=== PATIENT | female | born 1990 | race African-American/Black ===

== ENCOUNTER 2021-11-29 07:30 | Outpatient (RCR) | payer OTHER, SELFPAY ==
--- NOTE | 2021-10-20 09:09 | PT.OPPOC ---
Physical, Occupational & Speech Therapy At [facility] Current Diagnoses Pain in left lower leg (10/20/21) Visit Care Team Role Provider Type Brant [place] Attending Provider Non-Staff Family Provider Primary Care Provider Referring Provider Specialty: Medical Address: [facility], [address] [place] [address], [id number] Email: Plan Of Care PT-OP-T Assessment and Plan Start: 10/17/21 09:24 Freq: Status: Active Protocol: Document 10/20/21 08:15 AMB (Rec: 10/21/21 09:08 AMB [id number]) Physical Therapy Assessment Rehab Potential Rehabilitation Potential Good Evaluation Complexity Number of Personal Factors/Comorbidities 1-2 Number of Body Systems Impaired 4 or More Clinical Presentation at Evaluation Stable Impairments Impairments Activity Tolerance,Functional Activities,Gait,Pain,Strength Goals Two Impairment Pain Short Term Goal (STG) Meli will hike over uneven terrain for 1 mile without knee pain. STG Duration 4 weeks Alf Goal (LTG) Meli will run for 1/2 mile without knee pain. LTG Duration 8 weeks One Impairment Hip strength Short Term Goal (STG) Meli will improve her hip strength in all planes to at least 4+/5. STG Duration 4 weeks Alf Goal (LTG) Meli will perform a single leg squat without medial collapse and without knee pain. LTG Duration 8 weeks Assessment Summary Assessment Meli attends physical therapy with medial knee pain with running s/p L femoral fracture years ago. She attends with left hip abductor and extensor weakness that leads to medial collapse when walking quickly and especially with running/single leg stance activities. She will benefit from physical therapy for hip strengthening and education on running form to reduce her knee pain. Physical Therapy Plan Frequency and Duration Frequency of Treatment 2x/Week Duration of Treatment 8 weeks Plan of Care Start Date 10/20/21 Plan of Care End Date 12/15/21 Therapeutic Interventions Therapeutic Interventions Gait Training,Home Exercise Program,Manual Therapy, Neuromuscular Re-education, Self-Care/Home Management, Therapeutic Activities, Therapeutic Exercises Modalities Cold Pack/Ice Massage,Electric Stimulation,Hot Packs Next Visit Focus/Plan Next Note Type Treatment Note Next Visit Plan Follow up on hip abduction strength Plan of Care Dates Plan of Care Start Date 10/20/21 Plan of Care End Date 12/15/21 Electronically Signed by: Tonia Hannah, VALENTE 10/21/21 0909 Please Sign and Return: I have reviewed this Plan of Care and certify that the skilled therapy services above are required to meet the patient?s needs. Physician Signature Date Printed Name and Credentials Clinical Instructor Signature Printed Name and Credentials
--- NOTE | 2021-10-20 09:09 | PT.OIE ---
Current Diagnoses Pain in left lower leg (10/20/21) Visit Care Team Role Provider Type Brant [place] Attending Provider Non-Staff Family Provider Primary Care Provider Referring Provider Specialty: Medical Address: [facility], [address] [place] [address], [id number] Email: Physical Therapy Initial Evaluation PT-OP-A Visit Information Start: 10/17/21 09:24 Freq: Status: Active Protocol: Document 10/20/21 08:11 AMB (Rec: 10/20/21 08:13 AMB [id number]) Out-Patient Physical Therapy Visit Information Visit Information Visit Type Initial Evaluation Visit Start Time 08:15 Visit Stop Time 09:00 Total Visit Minutes 45 Visit Number 1 PT-OP-B Current Condition Start: 10/17/21 09:24 Freq: Status: Active Protocol: Document 10/20/21 08:13 AMB (Rec: 10/20/21 08:24 AMB [id number]) Current Condition History of Current Condition Onset Date July 2018 Current Complaints Bilateral knee pain, L lateral hip pain after distant L femoral fracture History of Current Condition Meli reports L>R medial knee pain with running, hiking, could hurt with walking. Did run a half marathon in July and thinks that went ok, but before and after noted pain at knees and posteriorlateral hip worst with running. Currently going on runs on treadmill for 2 miles but does feel it. Squats might hurt if she does them after she goes for a run. Intermedullary nailing with mohsen and screws both proximal and distal after skii accident in 2017. 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 PT-OP-C Subjective Start: 10/17/21 09:24 Freq: Status: Active Protocol: Document 10/20/21 08:15 AMB (Rec: 10/20/21 11:10 AMB [id number]) Patient Questionnaires Lower Extremity Functional Scale LEFS Score 69 LEFS Impairment 1 to 19% Impaired (Score 63-79 ) OP-PT Pain Assessment Comments Pain Comments 2-4/10 pain at bilateral knees and left posteriorlateral hip PT-OP-G Mobility & Gait Start: 10/17/21 09:24 Freq: Status: Active Protocol: Document 10/20/21 08:15 AMB (Rec: 10/20/21 11:10 AMB [id number]) OP Gait Assessment Comments Gait Comments Mild Trendelenburg on the left , worse as speed increases with visible medial collapse at the knee as velocity increases PT-OP-J Posture/Palpation/Skin Start: 10/17/21 09:24 Freq: Status: Active Protocol: Document 10/20/21 08:15 AMB (Rec: 10/20/21 11:13 AMB [id number]) Palpation Assessment Location One Palpation Location L knee Palpation Details Meli feels like she can feels the distal screws near her knee, no pain with deep palpation over the area. Mild tension over IT band. PT-OP-K Range of Motion Start: 10/17/21 09:24 Freq: Status: Active Protocol: Document 10/20/21 08:15 AMB (Rec: 10/20/21 11:10 AMB [id number]) Hip Goniometric Range of Motion Hip Right Passive Testing Position Supine Flexion w/Knee Flexed 130 Internal Rotation 27 External Rotation 50 Left Passive Testing Position Supine Flexion w/Knee Flexed 122 Internal Rotation 35 External Rotation 50 PT-OP-L Special Tests Start: 10/17/21 09:24 Freq: Status: Active Protocol: Document 10/20/21 08:15 AMB (Rec: 10/20/21 11:10 AMB [id number]) Special Tests Knee Special Tests Varus- 25 Degrees Test Results - Valgus- 25 Degrees Test Results - Patellar Grind Test Test Results - Anterior Draw Test Results - PT-OP-M Strength Start: 10/17/21 09:24 Freq: Status: Active Protocol: Document 10/20/21 08:15 AMB (Rec: 10/20/21 11:10 AMB [id number]) Hip Strength Hip Manual Muscle Testing Right Flexion (L2) 4+ Good+ Extension (S1) 5 Normal Abduction 5 Normal Adduction 4+ Good+ Left Flexion (L2) 4+ Good+ Extension (S1) 4- Good- Abduction 4- Good- Adduction 4 Good Knee Strength Knee Manual Muscle Testing Right Flexion (S2) 5 Normal Extension (L3) 5 Normal Left Flexion (S2) 5 Normal Extension (L3) 5 Normal Ankle/Foot Strength Ankle and Foot Manual Muscle Testing Right Dorsiflexion (L4) 5 Normal Plantarflexion (S1) 5 Normal Left Dorsiflexion (L4) 5 Normal Plantarflexion (S1) 5 Normal PT-OP-Q Treatments Start: 10/17/21 09:24 Freq: Status: Active Protocol: Document 10/20/21 08:15 AMB (Rec: 10/20/21 11:16 AMB [id number]) Therapeutic Exercises Sidelying Exercises hip abd Reps/Minutes 10 Comments cues for form- getting enough hip ext Standing Exercises sidestep Standing Exercise Name in squat with t band Comments increased medial knee pain did not give as HEP Other Exercises 1 Other Exercise Name quadruped hip ext Reps/Minutes 2x10 PT-OP-T Assessment and Plan Start: 10/17/21 09:24 Freq: Status: Active Protocol: Document 10/20/21 08:15 AMB (Rec: 10/21/21 09:08 AMB [id number]) Physical Therapy Assessment Rehab Potential Rehabilitation Potential Good Evaluation Complexity Number of Personal Factors/Comorbidities 1-2 Number of Body Systems Impaired 4 or More Clinical Presentation at Evaluation Stable Impairments Impairments Activity Tolerance,Functional Activities,Gait,Pain,Strength Goals Two Impairment Pain Short Term Goal (STG) Meli will hike over uneven terrain for 1 mile without knee pain. STG Duration 4 weeks Naval Architect Specialist Goal (LTG) Meli will run for 1/2 mile without knee pain. LTG Duration 8 weeks One Impairment Hip strength Short Term Goal (STG) Meli will improve her hip strength in all planes to at least 4+/5. STG Duration 4 weeks [facility]ci Goal (LTG) Meli will perform a single leg squat without medial collapse and without knee pain. LTG Duration 8 weeks Assessment Summary Assessment Meli attends physical therapy with medial knee pain with running s/p L femoral fracture years ago. She attends with left hip abductor and extensor weakness that leads to medial collapse when walking quickly and especially with running/single leg stance activities. She will benefit from physical therapy for hip strengthening and education on running form to reduce her knee pain. Physical Therapy Plan Frequency and Duration Frequency of Treatment 2x/Week Duration of Treatment 8 weeks Plan of Care Start Date 10/20/21 Plan of Care End Date 12/15/21 Therapeutic Interventions Therapeutic Interventions Gait Training,Home Exercise Program,Manual Therapy, Neuromuscular Re-education, Self-Care/Home Management, Therapeutic Activities, Therapeutic Exercises Modalities Cold Pack/Ice Massage,Electric Stimulation,Hot Packs Next Visit Focus/Plan Next Note Type Treatment Note Next Visit Plan Follow up on hip abduction strength
--- NOTE | 2021-11-04 08:51 | PT.OTN ---
Current Diagnoses Pain in left lower leg (11/04/21) Physical Therapy Treatment Note PT-OP-A Visit Information Start: 10/17/21 09:24 Freq: Status: Active Protocol: Document 11/04/21 07:30 AMB (Rec: 11/04/21 08:50 AMB [id number]) Out-Patient Physical Therapy Visit Information Visit Information Visit Type Treatment Note Visit Start Time 07:30 Visit Stop Time 08:15 Total Visit Minutes 45 Visit Number 2 PT-OP-B Current Condition Start: 10/17/21 09:24 Freq: Status: Active Protocol: Document 10/20/21 08:13 AMB (Rec: 10/20/21 08:24 AMB [id number]) Current Condition History of Current Condition Onset Date July 2018 Current Complaints Bilateral knee pain, L lateral hip pain after distant L femoral fracture History of Current Condition Meli reports L>R medial knee pain with running, hiking, could hurt with walking. Did run a half marathon in July and thinks that went ok, but before and after noted pain at knees and posteriorlateral hip worst with running. Currently going on runs on treadmill for 2 miles but does feel it. Squats might hurt if she does them after she goes for a run. Intermedullary nailing with mohsen and screws both proximal and distal after skii accident in 2017. 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 PT-OP-C Subjective Start: 10/17/21 09:24 Freq: Status: Active Protocol: Document 11/04/21 07:30 AMB (Rec: 11/04/21 08:50 AMB [id number]) OP-PT Subjective Patient Comments Patient Comments Pt reports she had covid so, hasn't been working out over the past two weeks. did do her HEP though, that has been going fine. PT-OP-G Mobility & Gait Start: 10/17/21 09:24 Freq: Status: Active Protocol: Document 10/20/21 08:15 AMB (Rec: 10/20/21 11:10 AMB [id number]) OP Gait Assessment Comments Gait Comments Mild Trendelenburg on the left , worse as speed increases with visible medial collapse at the knee as velocity increases PT-OP-J Posture/Palpation/Skin Start: 10/17/21 09:24 Freq: Status: Active Protocol: Document 10/20/21 08:15 AMB (Rec: 10/20/21 11:13 AMB [id number]) Palpation Assessment Location One Palpation Location L knee Palpation Details Meli feels like she can feels the distal screws near her knee, no pain with deep palpation over the area. Mild tension over IT band. PT-OP-K Range of Motion Start: 10/17/21 09:24 Freq: Status: Active Protocol: Document 10/20/21 08:15 AMB (Rec: 10/20/21 11:10 AMB [id number]) Hip Goniometric Range of Motion Hip Right Passive Testing Position Supine Flexion w/Knee Flexed 130 Internal Rotation 27 External Rotation 50 Left Passive Testing Position Supine Flexion w/Knee Flexed 122 Internal Rotation 35 External Rotation 50 PT-OP-L Special Tests Start: 10/17/21 09:24 Freq: Status: Active Protocol: Document 10/20/21 08:15 AMB (Rec: 10/20/21 11:10 AMB [id number]) Special Tests Knee Special Tests Varus- 25 Degrees Test Results - Valgus- 25 Degrees Test Results - Patellar Grind Test Test Results - Anterior Draw Test Results - PT-OP-M Strength Start: 10/17/21 09:24 Freq: Status: Active Protocol: Document 10/20/21 08:15 AMB (Rec: 10/20/21 11:10 AMB [id number]) Hip Strength Hip Manual Muscle Testing Right Flexion (L2) 4+ Good+ Extension (S1) 5 Normal Abduction 5 Normal Adduction 4+ Good+ Left Flexion (L2) 4+ Good+ Extension (S1) 4- Good- Abduction 4- Good- Adduction 4 Good Knee Strength Knee Manual Muscle Testing Right Flexion (S2) 5 Normal Extension (L3) 5 Normal Left Flexion (S2) 5 Normal Extension (L3) 5 Normal Ankle/Foot Strength Ankle and Foot Manual Muscle Testing Right Dorsiflexion (L4) 5 Normal Plantarflexion (S1) 5 Normal Left Dorsiflexion (L4) 5 Normal Plantarflexion (S1) 5 Normal PT-OP-Q Treatments Start: 10/17/21 09:24 Freq: Status: Active Protocol: Document 11/04/21 07:30 AMB (Rec: 11/04/21 08:50 AMB [id number]) Cardio Equipment Treadmill Duration (Minutes) 5 Speed 2 Gym Equipment Shuttle Recovery Unilateral Squats Resistance 50 Bilateral Squats Details with yellow t band around thighs Resistance 50 Reps/Time 2x10 Therapeutic Exercises Sidelying Exercises clamshell Resistance #1 t band Reps/Minutes 2x10 hip abd Reps/Minutes 10 Comments cues for form- getting enough hip ext Standing Exercises 1 Standing Exercise Name squat Comments mirror feedback, cued neutral lumbar spine, even weightbearing Other Exercises 2 Other Exercise Name quadruped hip external rotation Reps/Minutes 2x10 1 Other Exercise Name quadruped hip ext Reps/Minutes 2x10 Manual Therapy Treatment Other Other Manual Treatments instruction in self rolling foam roller vs rolling pin PT-OP-T Assessment and Plan Start: 10/17/21 09:24 Freq: Status: Active Protocol: Document 11/04/21 07:30 AMB (Rec: 11/04/21 08:50 AMB [id number]) Physical Therapy Assessment Assessment Summary Assessment Meli did well with exercises, did well thinking more about engaging glutes with walking. Does tend to more over laterally away from fractured leg with squats, especially as she moves deeper . Is having some awareness of medial screw with deeper squats. Physical Therapy Plan Next Visit Focus/Plan Next Note Type Treatment Note Next Visit Plan current HEP: clamshell with t band, quadruped hip extension and ER, hip abduction
--- NOTE | 2021-11-07 08:42 | PT.OTN ---
Current Diagnoses Pain in left lower leg (11/07/21) Physical Therapy Treatment Note PT-OP-A Visit Information Start: 10/17/21 09:24 Freq: Status: Active Protocol: Document 11/07/21 07:30 AMB (Rec: 11/07/21 08:42 AMB [id number]) Out-Patient Physical Therapy Visit Information Visit Information Visit Type Treatment Note Visit Start Time 07:30 Visit Stop Time 08:15 Total Visit Minutes 45 Visit Number 3 PT-OP-B Current Condition Start: 10/17/21 09:24 Freq: Status: Active Protocol: Document 10/20/21 08:13 AMB (Rec: 10/20/21 08:24 AMB [id number]) Current Condition History of Current Condition Onset Date July 2018 Current Complaints Bilateral knee pain, L lateral hip pain after distant L femoral fracture History of Current Condition Meli reports L>R medial knee pain with running, hiking, could hurt with walking. Did run a half marathon in July and thinks that went ok, but before and after noted pain at knees and posteriorlateral hip worst with running. Currently going on runs on treadmill for 2 miles but does feel it. Squats might hurt if she does them after she goes for a run. Intermedullary nailing with mohsen and screws both proximal and distal after skii accident in 2017. 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 PT-OP-C Subjective Start: 10/17/21 09:24 Freq: Status: Active Protocol: Document 11/07/21 07:30 AMB (Rec: 11/07/21 08:42 AMB [id number]) OP-PT Subjective Patient Comments Patient Comments Pt went on a walk over the weekend and worked on being aware of her glute activation. Did notice discomfort after about a mile. PT-OP-G Mobility & Gait Start: 10/17/21 09:24 Freq: Status: Active Protocol: Document 10/20/21 08:15 AMB (Rec: 10/20/21 11:10 AMB [id number]) OP Gait Assessment Comments Gait Comments Mild Trendelenburg on the left , worse as speed increases with visible medial collapse at the knee as velocity increases PT-OP-J Posture/Palpation/Skin Start: 10/17/21 09:24 Freq: Status: Active Protocol: Document 10/20/21 08:15 AMB (Rec: 10/20/21 11:13 AMB [id number]) Palpation Assessment Location One Palpation Location L knee Palpation Details Meli feels like she can feels the distal screws near her knee, no pain with deep palpation over the area. Mild tension over IT band. PT-OP-K Range of Motion Start: 10/17/21 09:24 Freq: Status: Active Protocol: Document 10/20/21 08:15 AMB (Rec: 10/20/21 11:10 AMB [id number]) Hip Goniometric Range of Motion Hip Right Passive Testing Position Supine Flexion w/Knee Flexed 130 Internal Rotation 27 External Rotation 50 Left Passive Testing Position Supine Flexion w/Knee Flexed 122 Internal Rotation 35 External Rotation 50 PT-OP-L Special Tests Start: 10/17/21 09:24 Freq: Status: Active Protocol: Document 10/20/21 08:15 AMB (Rec: 10/20/21 11:10 AMB [id number]) Special Tests Knee Special Tests Varus- 25 Degrees Test Results - Valgus- 25 Degrees Test Results - Patellar Grind Test Test Results - Anterior Draw Test Results - PT-OP-M Strength Start: 10/17/21 09:24 Freq: Status: Active Protocol: Document 10/20/21 08:15 AMB (Rec: 10/20/21 11:10 AMB [id number]) Hip Strength Hip Manual Muscle Testing Right Flexion (L2) 4+ Good+ Extension (S1) 5 Normal Abduction 5 Normal Adduction 4+ Good+ Left Flexion (L2) 4+ Good+ Extension (S1) 4- Good- Abduction 4- Good- Adduction 4 Good Knee Strength Knee Manual Muscle Testing Right Flexion (S2) 5 Normal Extension (L3) 5 Normal Left Flexion (S2) 5 Normal Extension (L3) 5 Normal Ankle/Foot Strength Ankle and Foot Manual Muscle Testing Right Dorsiflexion (L4) 5 Normal Plantarflexion (S1) 5 Normal Left Dorsiflexion (L4) 5 Normal Plantarflexion (S1) 5 Normal PT-OP-Q Treatments Start: 10/17/21 09:24 Freq: Status: Active Protocol: Document 11/07/21 07:30 AMB (Rec: 11/07/21 08:42 AMB [id number]) Cardio Equipment Treadmill Duration (Minutes) 5 Speed 2.5 Gym Equipment Shuttle Balance RED Comments m/l WBOS squats Therapeutic Exercises Supine Exercises piriformis stretch Reps/Minutes 30x2 hamstring stretch Reps/Minutes 30x2 Sidelying Exercises hip abd Reps/Minutes 2x 10 Comments cues for form- getting enough hip ext Standing Exercises wall squats Reps/Minutes 15 hold x4 1 Standing Exercise Name squat Comments mirror feedback, cued neutral lumbar spine, even weightbearing Manual Therapy Treatment Other Other Manual Treatments instruction in self rolling foam roller vs rolling pin-- educated to stay off greater trochanter/bony prominences PT-OP-T Assessment and Plan Start: 10/17/21 09:24 Freq: Status: Active Protocol: Document 11/07/21 07:30 AMB (Rec: 11/07/21 08:42 AMB [id number]) Physical Therapy Assessment Assessment Summary Assessment Better with longer hold squats instead of lots of reps. did do well with rolling out, fairly flexible so doesn't feel a lot of stretch. Physical Therapy Plan Next Visit Focus/Plan Next Note Type Treatment Note Next Visit Plan Review long hold squats given as HEP today.
--- NOTE | 2021-11-09 12:55 | PT.OTN ---
Current Diagnoses Pain in left lower leg (11/09/21) Physical Therapy Treatment Note PT-OP-A Visit Information Start: 10/17/21 09:24 Freq: Status: Active Protocol: Document 11/09/21 07:30 AMB (Rec: 11/09/21 08:24 AMB [id number]) Out-Patient Physical Therapy Visit Information Visit Information Visit Type Treatment Note Visit Start Time 07:30 Visit Stop Time 08:15 Total Visit Minutes 45 Visit Number 4 PT-OP-B Current Condition Start: 10/17/21 09:24 Freq: Status: Active Protocol: Document 10/20/21 08:13 AMB (Rec: 10/20/21 08:24 AMB [id number]) Current Condition History of Current Condition Onset Date July 2018 Current Complaints Bilateral knee pain, L lateral hip pain after distant L femoral fracture History of Current Condition Meli reports L>R medial knee pain with running, hiking, could hurt with walking. Did run a half marathon in July and thinks that went ok, but before and after noted pain at knees and posteriorlateral hip worst with running. Currently going on runs on treadmill for 2 miles but does feel it. Squats might hurt if she does them after she goes for a run. Intermedullary nailing with mohsen and screws both proximal and distal after skii accident in 2017. 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 PT-OP-C Subjective Start: 10/17/21 09:24 Freq: Status: Active Protocol: Document 11/09/21 07:30 AMB (Rec: 11/10/21 09:46 AMB [id number]) OP-PT Subjective Patient Comments Patient Comments Overall feeling about the same , continues to feel medial knee discomfort with squats, has not returned to running yet. PT-OP-G Mobility & Gait Start: 10/17/21 09:24 Freq: Status: Active Protocol: Document 10/20/21 08:15 AMB (Rec: 10/20/21 11:10 AMB [id number]) OP Gait Assessment Comments Gait Comments Mild Trendelenburg on the left , worse as speed increases with visible medial collapse at the knee as velocity increases PT-OP-J Posture/Palpation/Skin Start: 10/17/21 09:24 Freq: Status: Active Protocol: Document 10/20/21 08:15 AMB (Rec: 10/20/21 11:13 AMB [id number]) Palpation Assessment Location One Palpation Location L knee Palpation Details Meli feels like she can feels the distal screws near her knee, no pain with deep palpation over the area. Mild tension over IT band. PT-OP-K Range of Motion Start: 10/17/21 09:24 Freq: Status: Active Protocol: Document 10/20/21 08:15 AMB (Rec: 10/20/21 11:10 AMB [id number]) Hip Goniometric Range of Motion Hip Right Passive Testing Position Supine Flexion w/Knee Flexed 130 Internal Rotation 27 External Rotation 50 Left Passive Testing Position Supine Flexion w/Knee Flexed 122 Internal Rotation 35 External Rotation 50 PT-OP-L Special Tests Start: 10/17/21 09:24 Freq: Status: Active Protocol: Document 10/20/21 08:15 AMB (Rec: 10/20/21 11:10 AMB [id number]) Special Tests Knee Special Tests Varus- 25 Degrees Test Results - Valgus- 25 Degrees Test Results - Patellar Grind Test Test Results - Anterior Draw Test Results - PT-OP-M Strength Start: 10/17/21 09:24 Freq: Status: Active Protocol: Document 10/20/21 08:15 AMB (Rec: 10/20/21 11:10 AMB [id number]) Hip Strength Hip Manual Muscle Testing Right Flexion (L2) 4+ Good+ Extension (S1) 5 Normal Abduction 5 Normal Adduction 4+ Good+ Left Flexion (L2) 4+ Good+ Extension (S1) 4- Good- Abduction 4- Good- Adduction 4 Good Knee Strength Knee Manual Muscle Testing Right Flexion (S2) 5 Normal Extension (L3) 5 Normal Left Flexion (S2) 5 Normal Extension (L3) 5 Normal Ankle/Foot Strength Ankle and Foot Manual Muscle Testing Right Dorsiflexion (L4) 5 Normal Plantarflexion (S1) 5 Normal Left Dorsiflexion (L4) 5 Normal Plantarflexion (S1) 5 Normal PT-OP-Q Treatments Start: 10/17/21 09:24 Freq: Status: Active Protocol: Document 11/09/21 07:30 AMB (Rec: 11/10/21 09:46 AMB [id number]) Cardio Equipment Treadmill Duration (Minutes) 5 Speed 3 Therapeutic Exercises Sidelying Exercises hip abd Reps/Minutes 2x 10 Comments cues for form- getting enough hip ext Standing Exercises 2 Standing Exercise Name heel raises on stair Reps/Minutes 10 sidestep Standing Exercise Name no squat/t band, focus on toes forward Manual Therapy Treatment Soft Tissue Mobilization 1 Body Location quads, IT band Mobilization Type Myofascial Release,Rolling Intensity/Depth Moderate Comments rolling PT-OP-T Assessment and Plan Start: 10/17/21 09:24 Freq: Status: Active Protocol: Document 11/09/21 07:30 AMB (Rec: 11/10/21 09:46 AMB [id number]) Physical Therapy Assessment Goals Two Impairment Pain Short Term Goal (STG) Meli will hike over uneven terrain for 1 mile without knee pain. STG Duration 4 weeks Leak Hunter Goal (LTG) Meli will run for 1/2 mile without knee pain. LTG Duration 8 weeks One Impairment Hip strength Short Term Goal (STG) Meli will improve her hip strength in all planes to at least 4+/5. STG Duration 4 weeks Residential Goal (LTG) Meli will perform a single leg squat without medial collapse and without knee pain. LTG Duration 8 weeks Assessment Summary Assessment Worked more on squat form today. Does show atrophy on L calf, so added in heel raises for better push off with running. Physical Therapy Plan Next Visit Focus/Plan Next Note Type Treatment Note Next Visit Plan Review long hold squats, rolling,
--- NOTE | 2021-11-15 08:44 | PT.OTN ---
Current Diagnoses Pain in left lower leg (11/15/21) Physical Therapy Treatment Note PT-OP-A Visit Information Start: 10/17/21 09:24 Freq: Status: Active Protocol: Document 11/15/21 07:32 AMB (Rec: 11/15/21 08:44 AMB [id number]) Out-Patient Physical Therapy Visit Information Visit Information Visit Type Treatment Note Visit Start Time 07:30 Visit Stop Time 08:15 Total Visit Minutes 45 Visit Number 5 PT-OP-B Current Condition Start: 10/17/21 09:24 Freq: Status: Active Protocol: Document 10/20/21 08:13 AMB (Rec: 10/20/21 08:24 AMB [id number]) Current Condition History of Current Condition Onset Date July 2018 Current Complaints Bilateral knee pain, L lateral hip pain after distant L femoral fracture History of Current Condition Meli reports L>R medial knee pain with running, hiking, could hurt with walking. Did run a half marathon in July and thinks that went ok, but before and after noted pain at knees and posteriorlateral hip worst with running. Currently going on runs on treadmill for 2 miles but does feel it. Squats might hurt if she does them after she goes for a run. Intermedullary nailing with mohsen and screws both proximal and distal after skii accident in 2017. 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 PT-OP-C Subjective Start: 10/17/21 09:24 Freq: Status: Active Protocol: Document 11/15/21 07:32 AMB (Rec: 11/15/21 08:44 AMB [id number]) OP-PT Subjective Patient Comments Patient Comments Worked out this weekend, feels fatigue in with single leg weights, went on a walk and can feel it inthe lower leg with that, but not bad. PT-OP-G Mobility & Gait Start: 10/17/21 09:24 Freq: Status: Active Protocol: Document 10/20/21 08:15 AMB (Rec: 10/20/21 11:10 AMB [id number]) OP Gait Assessment Comments Gait Comments Mild Trendelenburg on the left , worse as speed increases with visible medial collapse at the knee as velocity increases PT-OP-J Posture/Palpation/Skin Start: 10/17/21 09:24 Freq: Status: Active Protocol: Document 10/20/21 08:15 AMB (Rec: 10/20/21 11:13 AMB [id number]) Palpation Assessment Location One Palpation Location L knee Palpation Details Meli feels like she can feels the distal screws near her knee, no pain with deep palpation over the area. Mild tension over IT band. PT-OP-K Range of Motion Start: 10/17/21 09:24 Freq: Status: Active Protocol: Document 10/20/21 08:15 AMB (Rec: 10/20/21 11:10 AMB [id number]) Hip Goniometric Range of Motion Hip Right Passive Testing Position Supine Flexion w/Knee Flexed 130 Internal Rotation 27 External Rotation 50 Left Passive Testing Position Supine Flexion w/Knee Flexed 122 Internal Rotation 35 External Rotation 50 PT-OP-L Special Tests Start: 10/17/21 09:24 Freq: Status: Active Protocol: Document 10/20/21 08:15 AMB (Rec: 10/20/21 11:10 AMB [id number]) Special Tests Knee Special Tests Varus- 25 Degrees Test Results - Valgus- 25 Degrees Test Results - Patellar Grind Test Test Results - Anterior Draw Test Results - PT-OP-M Strength Start: 10/17/21 09:24 Freq: Status: Active Protocol: Document 10/20/21 08:15 AMB (Rec: 10/20/21 11:10 AMB [id number]) Hip Strength Hip Manual Muscle Testing Right Flexion (L2) 4+ Good+ Extension (S1) 5 Normal Abduction 5 Normal Adduction 4+ Good+ Left Flexion (L2) 4+ Good+ Extension (S1) 4- Good- Abduction 4- Good- Adduction 4 Good Knee Strength Knee Manual Muscle Testing Right Flexion (S2) 5 Normal Extension (L3) 5 Normal Left Flexion (S2) 5 Normal Extension (L3) 5 Normal Ankle/Foot Strength Ankle and Foot Manual Muscle Testing Right Dorsiflexion (L4) 5 Normal Plantarflexion (S1) 5 Normal Left Dorsiflexion (L4) 5 Normal Plantarflexion (S1) 5 Normal PT-OP-Q Treatments Start: 10/17/21 09:24 Freq: Status: Active Protocol: Document 11/15/21 07:32 AMB (Rec: 11/15/21 08:44 AMB [id number]) Cardio Equipment Treadmill Duration (Minutes) 5 Speed 3 Gym Equipment Shuttle Recovery Unilateral Squats Resistance 50 Reps/Time 2x10 Bilateral Squats Details with yellow t band around thighs Resistance 50 Reps/Time 2x10 Therapeutic Exercises Sidelying Exercises clamshell Resistance #1 t band Reps/Minutes 2x10 Standing Exercises 2 Standing Exercise Name heel raises on stair Reps/Minutes 10 1 Standing Exercise Name squat Comments mirror feedback, cued neutral lumbar spine, even weightbearing Manual Therapy Treatment Soft Tissue Mobilization 1 Body Location quads, IT band, adductors Mobilization Type Myofascial Release,Rolling Intensity/Depth Moderate Comments rolling PT-OP-T Assessment and Plan Start: 10/17/21 09:24 Freq: Status: Active Protocol: Document 11/15/21 07:32 AMB (Rec: 11/15/21 08:44 AMB [id number]) Physical Therapy Assessment Goals Two Impairment Pain Short Term Goal (STG) Meli will hike over uneven terrain for 1 mile without knee pain. STG Duration 4 weeks Longterm Goal (LTG) Meli will run for 1/2 mile without knee pain. LTG Duration 8 weeks One Impairment Hip strength Short Term Goal (STG) Meli will improve her hip strength in all planes to at least 4+/5. STG Duration 4 weeks Longterm Goal (LTG) Meli will perform a single leg squat without medial collapse and without knee pain. LTG Duration 8 weeks Assessment Summary Assessment Meli is doing better with her squat form but continues to have medial thigh discomfort above the knee's joint line. Physical Therapy Plan Next Visit Focus/Plan Next Note Type Treatment Note Next Visit Plan Review long hold squats, rolling,
--- NOTE | 2021-11-18 09:39 | PT.OTN ---
Current Diagnoses Pain in left lower leg (11/18/21) Physical Therapy Treatment Note PT-OP-A Visit Information Start: 10/17/21 09:24 Freq: Status: Active Protocol: Document 11/18/21 07:30 AMB (Rec: 11/18/21 09:11 AMB [id number]) Out-Patient Physical Therapy Visit Information Visit Information Visit Type Treatment Note Visit Start Time 07:30 Visit Stop Time 08:15 Total Visit Minutes 45 Visit Number 6 PT-OP-B Current Condition Start: 10/17/21 09:24 Freq: Status: Active Protocol: Document 10/20/21 08:13 AMB (Rec: 10/20/21 08:24 AMB [id number]) Current Condition History of Current Condition Onset Date July 2018 Current Complaints Bilateral knee pain, L lateral hip pain after distant L femoral fracture History of Current Condition Meli reports L>R medial knee pain with running, hiking, could hurt with walking. Did run a half marathon in July and thinks that went ok, but before and after noted pain at knees and posteriorlateral hip worst with running. Currently going on runs on treadmill for 2 miles but does feel it. Squats might hurt if she does them after she goes for a run. Intermedullary nailing with mohsen and screws both proximal and distal after skii accident in 2017. 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 PT-OP-C Subjective Start: 10/17/21 09:24 Freq: Status: Active Protocol: Document 11/18/21 07:30 AMB (Rec: 11/18/21 09:11 AMB [id number]) OP-PT Subjective Patient Comments Patient Comments Didn't exercise in the last couple days because has been busy, but overall feeling ok. PT-OP-G Mobility & Gait Start: 10/17/21 09:24 Freq: Status: Active Protocol: Document 10/20/21 08:15 AMB (Rec: 10/20/21 11:10 AMB [id number]) OP Gait Assessment Comments Gait Comments Mild Trendelenburg on the left , worse as speed increases with visible medial collapse at the knee as velocity increases PT-OP-J Posture/Palpation/Skin Start: 10/17/21 09:24 Freq: Status: Active Protocol: Document 10/20/21 08:15 AMB (Rec: 10/20/21 11:13 AMB [id number]) Palpation Assessment Location One Palpation Location L knee Palpation Details Meli feels like she can feels the distal screws near her knee, no pain with deep palpation over the area. Mild tension over IT band. PT-OP-K Range of Motion Start: 10/17/21 09:24 Freq: Status: Active Protocol: Document 10/20/21 08:15 AMB (Rec: 10/20/21 11:10 AMB [id number]) Hip Goniometric Range of Motion Hip Right Passive Testing Position Supine Flexion w/Knee Flexed 130 Internal Rotation 27 External Rotation 50 Left Passive Testing Position Supine Flexion w/Knee Flexed 122 Internal Rotation 35 External Rotation 50 PT-OP-L Special Tests Start: 10/17/21 09:24 Freq: Status: Active Protocol: Document 10/20/21 08:15 AMB (Rec: 10/20/21 11:10 AMB [id number]) Special Tests Knee Special Tests Varus- 25 Degrees Test Results - Valgus- 25 Degrees Test Results - Patellar Grind Test Test Results - Anterior Draw Test Results - PT-OP-M Strength Start: 10/17/21 09:24 Freq: Status: Active Protocol: Document 10/20/21 08:15 AMB (Rec: 10/20/21 11:10 AMB [id number]) Hip Strength Hip Manual Muscle Testing Right Flexion (L2) 4+ Good+ Extension (S1) 5 Normal Abduction 5 Normal Adduction 4+ Good+ Left Flexion (L2) 4+ Good+ Extension (S1) 4- Good- Abduction 4- Good- Adduction 4 Good Knee Strength Knee Manual Muscle Testing Right Flexion (S2) 5 Normal Extension (L3) 5 Normal Left Flexion (S2) 5 Normal Extension (L3) 5 Normal Ankle/Foot Strength Ankle and Foot Manual Muscle Testing Right Dorsiflexion (L4) 5 Normal Plantarflexion (S1) 5 Normal Left Dorsiflexion (L4) 5 Normal Plantarflexion (S1) 5 Normal PT-OP-Q Treatments Start: 10/17/21 09:24 Freq: Status: Active Protocol: Document 11/18/21 07:30 AMB (Rec: 11/18/21 09:11 AMB [id number]) Cardio Equipment Treadmill Duration (Minutes) 5 Speed 3 Gym Equipment Shuttle Recovery Unilateral Squats Resistance 50 Reps/Time 4x10 Therapeutic Exercises Standing Exercises lunges Standing Exercise Name fwd,diagonal, lateral Reps/Minutes 2x10 Comments mild discomfort 2 Standing Exercise Name heel raises on stair Reps/Minutes 10 1 Standing Exercise Name squat Reps/Minutes 2x10 Comments mirror feedback, cued neutral lumbar spine, even weightbearing Manual Therapy Treatment Soft Tissue Mobilization 2 Body Location scar tissue Mobilization Type Instrument Assisted Comments cup PT-OP-T Assessment and Plan Start: 10/17/21 09:24 Freq: Status: Active Protocol: Document 11/18/21 07:30 AMB (Rec: 11/18/21 09:38 AMB [id number]) Physical Therapy Assessment Goals Two Impairment Pain Short Term Goal (STG) Meli will hike over uneven terrain for 1 mile without knee pain. STG Duration 4 weeks Skilled Nursing Goal (LTG) Meli will run for 1/2 mile without knee pain. LTG Duration 8 weeks One Impairment Hip strength Short Term Goal (STG) Meli will improve her hip strength in all planes to at least 4+/5. STG Duration 4 weeks Clerical And Office Support Workers Goal (LTG) Meli will perform a single leg squat without medial collapse and without knee pain. LTG Duration 8 weeks Assessment Summary Assessment Lunges were challenging today. Scar tissue at hip appears mobile but then doesn't pinch well, so did try manual to lift up scar tissue as pt is most concerned about her hip pain. Physical Therapy Plan Next Visit Focus/Plan Next Note Type Treatment Note Next Visit Plan Review lunges
--- NOTE | 2021-11-23 15:57 | PT.OTN ---
Current Diagnoses Pain in left lower leg (11/22/21) Physical Therapy Treatment Note PT-OP-A Visit Information Start: 10/17/21 09:24 Freq: Status: Active Protocol: Document 11/22/21 07:30 AMB (Rec: 11/22/21 16:41 AMB [id number]) Out-Patient Physical Therapy Visit Information Visit Information Visit Type Treatment Note Visit Start Time 07:30 Visit Stop Time 08:15 Total Visit Minutes 45 Visit Number 7 PT-OP-B Current Condition Start: 10/17/21 09:24 Freq: Status: Active Protocol: Document 10/20/21 08:13 AMB (Rec: 10/20/21 08:24 AMB [id number]) Current Condition History of Current Condition Onset Date July 2018 Current Complaints Bilateral knee pain, L lateral hip pain after distant L femoral fracture History of Current Condition Meli reports L>R medial knee pain with running, hiking, could hurt with walking. Did run a half marathon in July and thinks that went ok, but before and after noted pain at knees and posteriorlateral hip worst with running. Currently going on runs on treadmill for 2 miles but does feel it. Squats might hurt if she does them after she goes for a run. Intermedullary nailing with mohsen and screws both proximal and distal after skii accident in 2017. Treatment Goals Patient/Caregiver Goals Run without pain Prior Functional Status Baseline Function- ADL's Independent Baseline Function- Mobility Independent Current Functional Impairments (Reported) Functional Limitations- ADL's Pain with running, squatting, hiking, at times walking, can feel hip when lying on left side Personal Factors Other Personal Factors That May Effect Active duty, going on Therapy/Recovery detachment november PT-OP-C Subjective Start: 10/17/21 09:24 Freq: Status: Active Protocol: Document 11/22/21 07:30 AMB (Rec: 11/22/21 16:41 AMB [id number]) OP-PT Subjective Patient Comments Patient Comments Meli went on a hike this weekend, felt the knee and hip on the way up, jogged down and that was fine. PT-OP-G Mobility & Gait Start: 10/17/21 09:24 Freq: Status: Active Protocol: Document 10/20/21 08:15 AMB (Rec: 10/20/21 11:10 AMB [id number]) OP Gait Assessment Comments Gait Comments Mild Trendelenburg on the left , worse as speed increases with visible medial collapse at the knee as velocity increases PT-OP-J Posture/Palpation/Skin Start: 10/17/21 09:24 Freq: Status: Active Protocol: Document 10/20/21 08:15 AMB (Rec: 10/20/21 11:13 AMB [id number]) Palpation Assessment Location One Palpation Location L knee Palpation Details Meli feels like she can feels the distal screws near her knee, no pain with deep palpation over the area. Mild tension over IT band. PT-OP-K Range of Motion Start: 10/17/21 09:24 Freq: Status: Active Protocol: Document 10/20/21 08:15 AMB (Rec: 10/20/21 11:10 AMB [id number]) Hip Goniometric Range of Motion Hip Right Passive Testing Position Supine Flexion w/Knee Flexed 130 Internal Rotation 27 External Rotation 50 Left Passive Testing Position Supine Flexion w/Knee Flexed 122 Internal Rotation 35 External Rotation 50 PT-OP-L Special Tests Start: 10/17/21 09:24 Freq: Status: Active Protocol: Document 10/20/21 08:15 AMB (Rec: 10/20/21 11:10 AMB [id number]) Special Tests Knee Special Tests Varus- 25 Degrees Test Results - Valgus- 25 Degrees Test Results - Patellar Grind Test Test Results - Anterior Draw Test Results - PT-OP-M Strength Start: 10/17/21 09:24 Freq: Status: Active Protocol: Document 10/20/21 08:15 AMB (Rec: 10/20/21 11:10 AMB [id number]) Hip Strength Hip Manual Muscle Testing Right Flexion (L2) 4+ Good+ Extension (S1) 5 Normal Abduction 5 Normal Adduction 4+ Good+ Left Flexion (L2) 4+ Good+ Extension (S1) 4- Good- Abduction 4- Good- Adduction 4 Good Knee Strength Knee Manual Muscle Testing Right Flexion (S2) 5 Normal Extension (L3) 5 Normal Left Flexion (S2) 5 Normal Extension (L3) 5 Normal Ankle/Foot Strength Ankle and Foot Manual Muscle Testing Right Dorsiflexion (L4) 5 Normal Plantarflexion (S1) 5 Normal Left Dorsiflexion (L4) 5 Normal Plantarflexion (S1) 5 Normal PT-OP-Q Treatments Start: 10/17/21 09:24 Freq: Status: Active Protocol: Document 11/22/21 07:30 AMB (Rec: 11/23/21 15:57 AMB [id number]) Cardio Equipment Treadmill Duration (Minutes) 5 Speed 3 Gym Equipment Shuttle Recovery Unilateral Squats Resistance 50 Reps/Time 4x10 Therapeutic Exercises Standing Exercises lunges Standing Exercise Name fwd,diagonal, lateral Reps/Minutes 2x10 Comments mild discomfort 2 Standing Exercise Name heel raises on stair Reps/Minutes 10 Manual Therapy Treatment Soft Tissue Mobilization 2 Body Location scar tissue Mobilization Type Instrument Assisted Comments cup-- lateral hip, medial knee PT-OP-T Assessment and Plan Start: 10/17/21 09:24 Freq: Status: Active Protocol: Document 11/22/21 07:30 AMB (Rec: 11/23/21 15:57 AMB [id number]) Physical Therapy Assessment Goals Two Impairment Pain Short Term Goal (STG) Meli will hike over uneven terrain for 1 mile without knee pain. STG Duration 4 weeks Nursing Home Goal (LTG) Meli will run for 1/2 mile without knee pain. LTG Duration 8 weeks One Impairment Hip strength Short Term Goal (STG) Meli will improve her hip strength in all planes to at least 4+/5. STG Duration 4 weeks Phd Internship Goal (LTG) Meli will perform a single leg squat without medial collapse and without knee pain. LTG Duration 8 weeks Assessment Summary Assessment Pt continues to have discomfort with deeper lunges- - lateral lunges are ok, will follow up on how scar tissue work is feeling. Physical Therapy Plan Next Visit Focus/Plan Next Note Type Treatment Note Next Visit Plan Review lunges
--- NOTE | 2021-11-25 12:24 | PT.OTN ---
Current Diagnoses Pain in left lower leg (11/25/21) Physical Therapy Treatment Note PT-OP-A Visit Information Start: 10/17/21 09:24 Freq: Status: Active Protocol: Document 11/25/21 07:31 AMB (Rec: 11/25/21 08:13 AMB [id number]) Out-Patient Physical Therapy Visit Information Visit Information Visit Type Treatment Note Visit Start Time 07:30 Visit Stop Time 08:15 Total Visit Minutes 45 Visit Number 8 PT-OP-B Current Condition Start: 10/17/21 09:24 Freq: Status: Active Protocol: Document 10/20/21 08:13 AMB (Rec: 10/20/21 08:24 AMB [id number]) Current Condition History of Current Condition Onset Date July 2018 Current Complaints Bilateral knee pain, L lateral hip pain after distant L femoral fracture History of Current Condition Meli reports L>R medial knee pain with running, hiking, could hurt with walking. Did run a half marathon in July and thinks that went ok, but before and after noted pain at knees and posteriorlateral hip worst with running. Currently going on runs on treadmill for 2 miles but does feel it. Squats might hurt if she does them after she goes for a run. Intermedullary nailing with mohsen and screws both proximal and distal after skii accident in 2017. 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 PT-OP-C Subjective Start: 10/17/21 09:24 Freq: Status: Active Protocol: Document 11/25/21 07:31 AMB (Rec: 11/25/21 08:13 AMB [id number]) OP-PT Subjective Patient Comments Patient Comments Went on a walk yesterday and didn't have any pain PT-OP-G Mobility & Gait Start: 10/17/21 09:24 Freq: Status: Active Protocol: Document 10/20/21 08:15 AMB (Rec: 10/20/21 11:10 AMB [id number]) OP Gait Assessment Comments Gait Comments Mild Trendelenburg on the left , worse as speed increases with visible medial collapse at the knee as velocity increases PT-OP-J Posture/Palpation/Skin Start: 10/17/21 09:24 Freq: Status: Active Protocol: Document 10/20/21 08:15 AMB (Rec: 10/20/21 11:13 AMB [id number]) Palpation Assessment Location One Palpation Location L knee Palpation Details Meli feels like she can feels the distal screws near her knee, no pain with deep palpation over the area. Mild tension over IT band. PT-OP-K Range of Motion Start: 10/17/21 09:24 Freq: Status: Active Protocol: Document 10/20/21 08:15 AMB (Rec: 10/20/21 11:10 AMB [id number]) Hip Goniometric Range of Motion Hip Right Passive Testing Position Supine Flexion w/Knee Flexed 130 Internal Rotation 27 External Rotation 50 Left Passive Testing Position Supine Flexion w/Knee Flexed 122 Internal Rotation 35 External Rotation 50 PT-OP-L Special Tests Start: 10/17/21 09:24 Freq: Status: Active Protocol: Document 10/20/21 08:15 AMB (Rec: 10/20/21 11:10 AMB [id number]) Special Tests Knee Special Tests Varus- 25 Degrees Test Results - Valgus- 25 Degrees Test Results - Patellar Grind Test Test Results - Anterior Draw Test Results - PT-OP-M Strength Start: 10/17/21 09:24 Freq: Status: Active Protocol: Document 10/20/21 08:15 AMB (Rec: 10/20/21 11:10 AMB [id number]) Hip Strength Hip Manual Muscle Testing Right Flexion (L2) 4+ Good+ Extension (S1) 5 Normal Abduction 5 Normal Adduction 4+ Good+ Left Flexion (L2) 4+ Good+ Extension (S1) 4- Good- Abduction 4- Good- Adduction 4 Good Knee Strength Knee Manual Muscle Testing Right Flexion (S2) 5 Normal Extension (L3) 5 Normal Left Flexion (S2) 5 Normal Extension (L3) 5 Normal Ankle/Foot Strength Ankle and Foot Manual Muscle Testing Right Dorsiflexion (L4) 5 Normal Plantarflexion (S1) 5 Normal Left Dorsiflexion (L4) 5 Normal Plantarflexion (S1) 5 Normal PT-OP-Q Treatments Start: 10/17/21 09:24 Freq: Status: Active Protocol: Document 11/25/21 07:30 AMB (Rec: 11/25/21 08:18 AMB [id number]) Cardio Equipment Treadmill Duration (Minutes) 5 Speed 3 Gym Equipment Shuttle Recovery Unilateral Squats Resistance 50 Reps/Time 4x10 Therapeutic Exercises Standing Exercises lunges Standing Exercise Name fwd,diagonal, lateral Reps/Minutes 2x10 Comments mild discomfort 2 Standing Exercise Name heel raises on stair Reps/Minutes 10 sidestep Standing Exercise Name mini squat/t band, focus on toes forward Reps/Minutes 5 min Comments red band Manual Therapy Treatment Soft Tissue Mobilization 2 Body Location scar tissue Mobilization Type Instrument Assisted Comments cup-- lateral hip, medial knee PT-OP-T Assessment and Plan Start: 10/17/21 09:24 Freq: Status: Active Protocol: Document 11/25/21 07:30 AMB (Rec: 11/25/21 08:18 AMB [id number]) Physical Therapy Assessment Assessment Summary Assessment Pt continues to have pain with forward lunges, lateral lunges and squats are improving. Gave sidestepping with band on lower legs as HEP and could consider lateral lunges. Physical Therapy Plan Next Visit Focus/Plan Next Note Type Treatment Note Next Visit Plan Last visit next visit - pt going on detachment
--- NOTE | 2021-11-29 08:42 | PT.OTN ---
Current Diagnoses Pain in left lower leg (11/29/21) Physical Therapy Treatment Note PT-OP-A Visit Information Start: 10/17/21 09:24 Freq: Status: Active Protocol: Document 11/29/21 07:35 AMB (Rec: 11/29/21 08:41 AMB [id number]) Out-Patient Physical Therapy Visit Information Visit Information Visit Type Treatment Note Visit Start Time 07:30 Visit Stop Time 08:15 Total Visit Minutes 45 Visit Number 9 PT-OP-B Current Condition Start: 10/17/21 09:24 Freq: Status: Active Protocol: Document 10/20/21 08:13 AMB (Rec: 10/20/21 08:24 AMB [id number]) Current Condition History of Current Condition Onset Date July 2018 Current Complaints Bilateral knee pain, L lateral hip pain after distant L femoral fracture History of Current Condition Meli reports L>R medial knee pain with running, hiking, could hurt with walking. Did run a half marathon in July and thinks that went ok, but before and after noted pain at knees and posteriorlateral hip worst with running. Currently going on runs on treadmill for 2 miles but does feel it. Squats might hurt if she does them after she goes for a run. Intermedullary nailing with mohsen and screws both proximal and distal after skii accident in 2017. 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 PT-OP-G Mobility & Gait Start: 10/17/21 09:24 Freq: Status: Active Protocol: Document 10/20/21 08:15 AMB (Rec: 10/20/21 11:10 AMB [id number]) OP Gait Assessment Comments Gait Comments Mild Trendelenburg on the left , worse as speed increases with visible medial collapse at the knee as velocity increases PT-OP-J Posture/Palpation/Skin Start: 10/17/21 09:24 Freq: Status: Active Protocol: Document 10/20/21 08:15 AMB (Rec: 10/20/21 11:13 AMB [id number]) Palpation Assessment Location One Palpation Location L knee Palpation Details Meli feels like she can feels the distal screws near her knee, no pain with deep palpation over the area. Mild tension over IT band. PT-OP-K Range of Motion Start: 10/17/21 09:24 Freq: Status: Active Protocol: Document 10/20/21 08:15 AMB (Rec: 10/20/21 11:10 AMB [id number]) Hip Goniometric Range of Motion Hip Right Passive Testing Position Supine Flexion w/Knee Flexed 130 Internal Rotation 27 External Rotation 50 Left Passive Testing Position Supine Flexion w/Knee Flexed 122 Internal Rotation 35 External Rotation 50 PT-OP-L Special Tests Start: 10/17/21 09:24 Freq: Status: Active Protocol: Document 10/20/21 08:15 AMB (Rec: 10/20/21 11:10 AMB [id number]) Special Tests Knee Special Tests Varus- 25 Degrees Test Results - Valgus- 25 Degrees Test Results - Patellar Grind Test Test Results - Anterior Draw Test Results - PT-OP-M Strength Start: 10/17/21 09:24 Freq: Status: Active Protocol: Document 10/20/21 08:15 AMB (Rec: 10/20/21 11:10 AMB [id number]) Hip Strength Hip Manual Muscle Testing Right Flexion (L2) 4+ Good+ Extension (S1) 5 Normal Abduction 5 Normal Adduction 4+ Good+ Left Flexion (L2) 4+ Good+ Extension (S1) 4- Good- Abduction 4- Good- Adduction 4 Good Knee Strength Knee Manual Muscle Testing Right Flexion (S2) 5 Normal Extension (L3) 5 Normal Left Flexion (S2) 5 Normal Extension (L3) 5 Normal Ankle/Foot Strength Ankle and Foot Manual Muscle Testing Right Dorsiflexion (L4) 5 Normal Plantarflexion (S1) 5 Normal Left Dorsiflexion (L4) 5 Normal Plantarflexion (S1) 5 Normal PT-OP-Q Treatments Start: 10/17/21 09:24 Freq: Status: Active Protocol: Document 11/29/21 07:35 AMB (Rec: 11/29/21 08:41 AMB [id number]) Cardio Equipment Treadmill Duration (Minutes) 6 Speed 3 Gym Equipment Shuttle Recovery Unilateral Squats Details jumps Resistance 25 Reps/Time 2x10 Therapeutic Exercises Standing Exercises lunges Standing Exercise Name fwd,diagonal, lateral Reps/Minutes 2x10 Comments mild discomfort 2 Standing Exercise Name heel raises on stair Reps/Minutes 10 wall squats Comments single leg on L is painful PT-OP-T Assessment and Plan Start: 10/17/21 09:24 Freq: Status: Active Protocol: Document 11/29/21 07:35 AMB (Rec: 11/29/21 08:41 AMB [id number]) Physical Therapy Assessment Goals Two Impairment Pain Short Term Goal (STG) Meli will hike over uneven terrain for 1 mile without knee pain. STG Duration MET Fdc Goal (LTG) Meli will run for 1/2 mile without knee pain. LTG Duration NOT MET One Impairment Hip strength Short Term Goal (STG) Meli will improve her hip strength in all planes to at least 4+/5. STG Duration MET Fdc Goal (LTG) Meli will perform a single leg squat without medial collapse and without knee pain. LTG Duration NOT MET Assessment Summary Assessment Meli continues to have lower medial leg pain and intermittent hip pain with higher level activities ( single leg squat, forward lunges, running). Encouraged her to continue strengthening especially at calf and glutes over the next couple of months and then if continuing to have issues return to MD at that point. Physical Therapy Plan Discharge Physical Therapy Discharge Comments Going on a detachment and won' t be back till January when her auth is up. Discussed idea of getting new auth or talking with her MD at that time.
--- NOTE | 2021-11-29 08:54 | PT.OPDS ---
Current Diagnoses Pain in left lower leg (11/29/21) Visit Care Team Role Provider Type [place] Attending Provider Non-Staff Family Provider Primary Care Provider Referring Provider Specialty: Medical Address: [facility], [address] [place] [address], [id number] Email: Visit Number Visit Number 9 Discharge Summary PT-OP-B Current Condition Start: 10/17/21 09:24 Freq: Status: Active Protocol: Document 10/20/21 08:13 AMB (Rec: 10/20/21 08:24 AMB [id number]) Current Condition History of Current Condition Onset Date July 2018 Current Complaints Bilateral knee pain, L lateral hip pain after distant L femoral fracture History of Current Condition Meli reports L>R medial knee pain with running, hiking, could hurt with walking. Did run a half marathon in July and thinks that went ok, but before and after noted pain at knees and posteriorlateral hip worst with running. Currently going on runs on treadmill for 2 miles but does feel it. Squats might hurt if she does them after she goes for a run. Intermedullary nailing with mohsen and screws both proximal and distal after skii accident in 2017. Treatment Goals Patient/Caregiver Goals Run without pain Prior Functional Status Baseline Function- ADL's Independent Baseline Function- Mobility Independent Current Functional Impairments (Reported) Functional Limitations- ADL's Pain with running, squatting, hiking, at times walking, can feel hip when lying on left side Personal Factors Other Personal Factors That May Effect Active duty, going on Therapy/Recovery detachment november PT-OP-C Subjective Start: 10/17/21 09:24 Freq: Status: Active Protocol: Document 11/29/21 07:35 AMB (Rec: 11/29/21 08:41 AMB [id number]) OP-PT Subjective Patient Comments Patient Comments Did a barre class and it went well, didn't do the lunges but otherwise was able to do everything without pain. PT-OP-G Mobility & Gait Start: 10/17/21 09:24 Freq: Status: Active Protocol: Document 10/20/21 08:15 AMB (Rec: 10/20/21 11:10 AMB [id number]) OP Gait Assessment Comments Gait Comments Mild Trendelenburg on the left , worse as speed increases with visible medial collapse at the knee as velocity increases PT-OP-J Posture/Palpation/Skin Start: 10/17/21 09:24 Freq: Status: Active Protocol: Document 10/20/21 08:15 AMB (Rec: 10/20/21 11:13 AMB [id number]) Palpation Assessment Location One Palpation Location L knee Palpation Details Meli feels like she can feels the distal screws near her knee, no pain with deep palpation over the area. Mild tension over IT band. PT-OP-K Range of Motion Start: 10/17/21 09:24 Freq: Status: Active Protocol: Document 10/20/21 08:15 AMB (Rec: 10/20/21 11:10 AMB [id number]) Hip Goniometric Range of Motion Hip Right Passive Testing Position Supine Flexion w/Knee Flexed 130 Internal Rotation 27 External Rotation 50 Left Passive Testing Position Supine Flexion w/Knee Flexed 122 Internal Rotation 35 External Rotation 50 PT-OP-L Special Tests Start: 10/17/21 09:24 Freq: Status: Active Protocol: Document 10/20/21 08:15 AMB (Rec: 10/20/21 11:10 AMB [id number]) Special Tests Knee Special Tests Varus- 25 Degrees Test Results - Valgus- 25 Degrees Test Results - Patellar Grind Test Test Results - Anterior Draw Test Results - PT-OP-M Strength Start: 10/17/21 09:24 Freq: Status: Active Protocol: Document 10/20/21 08:15 AMB (Rec: 10/20/21 11:10 AMB [id number]) Hip Strength Hip Manual Muscle Testing Right Flexion (L2) 4+ Good+ Extension (S1) 5 Normal Abduction 5 Normal Adduction 4+ Good+ Left Flexion (L2) 4+ Good+ Extension (S1) 4- Good- Abduction 4- Good- Adduction 4 Good Knee Strength Knee Manual Muscle Testing Right Flexion (S2) 5 Normal Extension (L3) 5 Normal Left Flexion (S2) 5 Normal Extension (L3) 5 Normal Ankle/Foot Strength Ankle and Foot Manual Muscle Testing Right Dorsiflexion (L4) 5 Normal Plantarflexion (S1) 5 Normal Left Dorsiflexion (L4) 5 Normal Plantarflexion (S1) 5 Normal PT-OP-T Assessment and Plan Start: 10/17/21 09:24 Freq: Status: Active Protocol: Document 11/29/21 07:35 AMB (Rec: 11/29/21 08:41 [facility] [id number]) Physical Therapy Assessment Goals Two Impairment Pain Short Term Goal (STG) Meli will hike over uneven terrain for 1 mile without knee pain. STG Duration MET Glue Wheel Operator Goal (LTG) Meli will run for 1/2 mile without knee pain. LTG Duration NOT MET One Impairment Hip strength Short Term Goal (STG) Meli will improve her hip strength in all planes to at least 4+/5. STG Duration MET Residential Goal (LTG) Meli will perform a single leg squat without medial collapse and without knee pain. LTG Duration NOT MET Assessment Summary Assessment Meli continues to have lower medial leg pain and intermittent hip pain with higher level activities ( single leg squat, forward lunges, running). Encouraged her to continue strengthening especially at calf and glutes over the next couple of months and then if continuing to have issues return to MD at that point. Physical Therapy Plan Discharge Physical Therapy Discharge Comments Going on a detachment and won' t be back till January when her auth is up. Discussed idea of getting new auth or talking with her MD at that time.
== END 2021-12-01 08:43 ==
LOC: PHYS 07:30
DX: M79.662 Pain in left lower leg (principal)
CPT/HCPCS: 97110; 97140; 97161